=== PATIENT | female | born 1990 ===

== ENCOUNTER 2020-10-05 23:02 | Emergency (ER) | payer SELFPAY ==
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
[2020-10-06 04:00] VITALS: BP 121/91; TEMP 97.8; O2SAT 100
== END 2020-10-06 03:54 | disposition left against medical advice (07) ==
LOC: ER 23:02
DX: M54.9 Dorsalgia, unspecified (principal); M79.604 Pain in right leg; M79.605 Pain in left leg; V49.40XA Driver injured in collision with unspecified motor vehicles in traffic accident, initial encounter; F17.210 Nicotine dependence, cigarettes, uncomplicated; Z53.21 Procedure and treatment not carried out due to patient leaving prior to being seen by health care provider
CPT/HCPCS: 99281